=== PATIENT | female | born 1960 | race Caucasian/White ===

== ENCOUNTER 2016-12-31 16:58 | Emergency (ER) | payer OTHER ==
[~2016-12-31] VITALS: Ht 180.3 cm; Wt 53.3 kg
[~2016-12-31 16:58] MED LIST: ACYCLOVIR800 MG PO; MOTRIN600 MG PO; PERCOCET 5/31 TABLET PO; ULTRAM50 MG PO
[2016-12-31 20:17] LABS: EOSINOPHIL (%) 1.8 % (0-5); HEMATOCRIT 42.5 % (36.0-46.0); INSTRUMENT ABS NEUTROPHIL CT 1.5 K/uL; LYMPHOCYTE COUNT 0.4 K/uL (1.0-2.8); MCH 32.5 PG (29.0-34.0); MCHC 35.5 G/DL (30.0-36.0); MCV 91.4 FL (83-99); MEAN PLAT.VOLUME 10.2 uM^3 (9.5-12.4); MONOCYTE (%) 12.9 % (3-12); MONOCYTE COUNT 0.3 K/uL (0-0.8); NEUTROPHIL (%) 67.3 % (45-76); NEUTROPHIL COUNT 1.5 K/uL (1.8-6.4); PLATELET COUNT 87 K/uL (156-360); RBC DIS.WIDTH-CV 11.9 % (11.8-14.6); RBC DIS.WIDTH-SD 39.8 % (39-53); RED BLOOD COUNT 4.65 M/uL (3.80-5.20); WHITE BLOOD COUNT 2.2 K/uL (4.1-10.2)
[2016-12-31 20:29] LABS: CHLORIDE 101 mEq/L (99-109); POTASSIUM 3.9 mEq/L (3.7-5.4); SODIUM 135 mEq/L (136-147)
[2016-12-31 20:31] LABS: GLUCOSE 92 mg/dL (70-99)
[2016-12-31 20:32] LABS: ANION GAP 13 MEQ/L (2-14)
[2016-12-31 20:33] LABS: TOTAL BILIRUBIN 0.4 mg/dL (0.0-1.0)
[2016-12-31 20:34] LABS: ALKALINE PHOSPHATASE 97 IU/L (3-129)
[2016-12-31 20:35] LABS: GFR ESTIMATE (CALCULATED) 55 mL/min/
[2016-12-31 20:36] LABS: UREA NITROGEN (BUN) 12 mg/dL (9-23)
[2016-12-31 20:38] LABS: TROP-I INTERPRETATION NEGATIVE; TROPONIN-I < 0.01 ng/mL (0.0-0.30)
[2016-12-31 21:22] LABS: ADD MIUA? YES; BILIRUBIN NEGATIVE; BLOOD SMALL; COLOR YELLOW ((YELLOW)); GLUCOSE (STRIP) NEGATIVE; KETONES 5; LEUKOCYTES TRACE; NITRITE NEGATIVE; PROTEIN (STRIP) NEGATIVE; UROBILINOGEN 0.2 MG/DL (0.2-1.0)
[2016-12-31 21:31] LABS: BACTERIA NONE SEEN /HPF; EPITHELIAL CELLS 1+ /HPF; HYALINE CASTS 0-5 /LPF; MUCUS TRACE /LPF; RED BLOOD CELLS 0-5 /HPF (0-5); UCUL ADDED? NO; WHITE BLOOD CELLS 0-5 /HPF (0-5)
[2016-12-31] MEDS ORDERED: ZOFRAN ODT4 MG PO (21:46)
[2016-12-31 22:19] VITALS: BP 141/88
== END 2016-12-31 22:20 | disposition home or self-care (01) ==
LOC: EME 16:58
PROVIDERS: Emergency Medicine
DX: E86.0 Dehydration (principal); D69.6 Thrombocytopenia, unspecified; H66.92 Otitis media, unspecified, left ear; R30.0 Dysuria; R11.0 Nausea; M54.9 Dorsalgia, unspecified; Z86.14 Personal history of Methicillin resistant Staphylococcus aureus infection; F17.200 Nicotine dependence, unspecified, uncomplicated
CPT/HCPCS: 71020; 80053; 81003; 83605; 84484; 85025; 87040; 99281; 99284; J2405